=== PATIENT | female | born 1970 | race Caucasian/White ===

== ENCOUNTER → 2020-08-11 13:34 | Outpatient (BNVA) | payer OTHER, SELFPAY | PROVIDERS: PCP Internal Medicine; Visit Provider Physician Assistant ==

== ENCOUNTER 2020-09-07 15:09 | Outpatient (REF) | payer OTHER, SELFPAY ==
--- NOTE | ~2020-09-07 | XR_ITS ---
EXAMINATION: XR CHEST CLINICAL INFORMATION: Cough. COMPARISON: None TECHNIQUE: 2 views of the chest were obtained. FINDINGS: The lungs are well-expanded and clear. The heart size and pulmonary vascularity is normal. Mild spondylosis dorsal spine. XR/XR chest 2V IMPRESSION: Unremarkable chest exam.
[2020-09-07 16:20] LABS: MANUAL DIFF FLAG NO
[2020-09-07 16:27] LABS: Basophils Percent Auto 0.5 % (0-2); Eosinophils Absolute Auto 0.2 X10*3/uL (0.0-0.4); Eosinophils Percent Auto 2.4 % (0-4); Hematocrit 39.9 % (37-47); Hemoglobin 13.1 g/dl (12.0-16.0); Imm Gran Abs Auto 0.03 X10*3/uL (0.00-0.03); Imm Gran Pct Auto 0.3 % (0.0-0.4); Lymphocytes Absolute Auto 2.1 X10*3/uL (1.2-4.9); Mean Corpuscular HGB Conc 32.8 g/dl (31.0-35.0); Mean Corpuscular Hemoglobin 28.2 pg (27.0-33.0); Monocytes Absolute Auto 0.6 X10*3/uL (0.1-1.2); Monocytes Percent Auto 6.3 % (2-11); Neutrophils Absolute Auto 5.8 X10*3/uL (2.0-8.3); Neutrophils Percent Auto 66.5 % (45-73); Platelet Count 307 X10*3/uL (160-400); Red Blood Count 4.64 X10*6/uL (4.20-5.50); Red Cell Distribution Width 13.3 % (11.0-16.0); White Blood Count 8.8 X10*3/uL (4.8-10.8)
[2020-09-07 17:12] LABS: TSH reflex Free T4 2.33 uIU/mL (0.32-4.0)
== END 2020-09-07 15:10 | disposition home or self-care (01) ==
LOC: HO.LAB 15:09
PROVIDERS: PCP Internal Medicine; Visit Provider Internal Medicine Pulmonary Disease
DX: R05 Cough (principal); E03.9 Hypothyroidism, unspecified; K21.9 Gastro-esophageal reflux disease without esophagitis; J45.909 Unspecified asthma, uncomplicated; Z87.891 Personal history of nicotine dependence
CPT/HCPCS: 36415; 71046; 82785; 84443; 85025; 86003

== ENCOUNTER 2020-09-19 15:59 | Outpatient (REF) | payer OTHER, SELFPAY ==
--- NOTE | 2020-09-19 17:38 | PFT_ITS ---
Forced vital capacity, FEV1, QKV46-53, and MVV are all normal. Post bronchodilator therapy, there is no change. Total lung capacity and residual volume normal. Diffusion capacity normal. CONCLUSION: Normal pulmonary function test. No evidence of any restrictive or obstructive pulmonary disorder. Ced El MD MSB/MODL / [id number]
== END 2020-09-19 16:00 | disposition home or self-care (01) ==
LOC: HO.RESP 15:59
PROVIDERS: PCP Internal Medicine; Visit Provider Internal Medicine Pulmonary Disease
DX: R05 Cough (principal)
CPT/HCPCS: 94060; 94727; 94729

== ENCOUNTER → 2020-09-21 15:52 | Outpatient (BNVA) | payer OTHER, SELFPAY | PROVIDERS: PCP Internal Medicine; Visit Provider Internal Medicine Pulmonary Disease ==

== ENCOUNTER → 2020-09-26 07:30 | Outpatient (BNVA) | payer OTHER, SELFPAY | PROVIDERS: Visit Provider Physician Assistant ==

== ENCOUNTER 2020-10-25 10:00 | Day surgery (SDC) | payer OTHER, SELFPAY ==
[2020-10-20 13:19] VITALS: BMI 41.6
--- NOTE | 2020-10-24 09:51 | P.CONAN_ITS ---
HPI - Anesthesia Eval Consult details Narrative: 50yo F for Upper Endoscopy and Colonoscopy [facility] Active Problems Active Problems: All Active Problems (Updated 10/20/20 @ 13:22 by Lisy Alas) Otitis media (Acute) HTN (hypertension) (Acute) Encounter for screening colonoscopy (Acute) Morbid obesity (Acute) Dysphagia (Acute) Chronic cough (Acute) Reactive airway disease (Acute) Hiatal hernia (Acute) Mild asthma (Acute) Hypothyroidism (Acute) GERD (gastroesophageal reflux disease) (Acute) Past Medical History Medical History Chronic cough Dysphagia GERD (gastroesophageal reflux disease) Hiatal hernia Hx of sciatica Hypothyroidism Mild asthma Morbid obesity Reactive airway disease Family History Family History Father No problems noted. Mother Breast cancer Cancer of kidney Lung cancer Son Thyroid cancer Brother No problems noted. Sister No problems noted. Son No problems noted. Surgical History Surgical History (System 10/04/20 @ 13:35 by Cheri Hermosillo) History of total abdominal hysterectomy Social History Social History (System 10/04/20 @ 13:35 by Cheri Hermosillo) Household Members: Spouse Alcohol intake: current Alcohol intake frequency: holidays/special occasions only Alcohol type: beer and wine Smoking Status: Former smoker Tobacco Type: Cigarette Use of substances other than those prescribed or required for medical reasons: No Have you been hit, kicked, punched, or otherwise hurt by someone within the past year? 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 No evidence of any restrictive or obstructive pulmonary disorder. Assessment and Plan Assessment Anesthesia Assessment: Chart Reviewed
[2020-10-25 10:28] VITALS: BP 151/98; PULSE 110; RESP 18; TEMP 36.1; O2SAT 95
[2020-10-25] MEDS: Lactated Ringers 1,000 ML 100 ML IVCONT (10:33)
--- NOTE | 2020-10-25 11:05 | HO.ANESPROP2 ---
[facility] Active Problems Active Problems: All Active Problems (Updated 10/20/20 @ 13:22 by Lisy Alas) Otitis media (Acute) HTN (hypertension) (Acute) Encounter for screening colonoscopy (Acute) Morbid obesity (Acute) Dysphagia (Acute) Chronic cough (Acute) Reactive airway disease (Acute) Hiatal hernia (Acute) Mild asthma (Acute) Hypothyroidism (Acute) GERD (gastroesophageal reflux disease) (Acute) Past Medical History Medical History Chronic cough Dysphagia GERD (gastroesophageal reflux disease) Hiatal hernia Hx of sciatica Hypothyroidism Mild asthma Morbid obesity Reactive airway disease Family History Family History Father No problems noted. Mother Breast cancer Cancer of kidney Lung cancer Son Thyroid cancer Brother No problems noted. Sister No problems noted. Son No problems noted. Surgical History Surgical History (System 10/04/20 @ 13:35 by Cheri Hermosillo) History of total abdominal hysterectomy Social History Social History (System 10/04/20 @ 13:35 by Cheri Hermosillo) Household Members: Spouse Alcohol intake: current Alcohol intake frequency: holidays/special occasions only Alcohol type: beer and wine Smoking Status: Former smoker Tobacco Type: Cigarette Use of substances other than those prescribed or required for medical reasons: No Have you been hit, kicked, punched, or otherwise hurt by someone within the past year? 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 Meds Allergies Allergy/AdvReac Type Severity Reaction Status Date / Time No Known Allergies Allergy Verified 10/04/20 13:35 Active Medications: Current Medications Generic Name Dose Route Start Last Admin Trade Name Freq PRN Reason Stop Dose Admin Albuterol Sulfate 2.5 mg 10/25/20 10:18 Albuterol Sulfate (0.083%) 2.5 Mg/3 Ml Vial.Neb INHALE ONCE PRN Shortness of Breath/Wheezing Lactated Ringer's 1,000 mls @ 100 mls/hr 10/25/20 10:30 10/25/20 10:33 Lr IVCONT 100 mls/hr .Q10H SHARAN Administration Home Medications Medication Instructions Recorded Confirmed Last Taken Type albuterol sulfate 90 mcg/actuation 1 puff INHALATION Q4H PRN g 06/20/20 10/20/20 Unknown History aerosol inhaler Exam Exam Date and Time: October 25, 2020 1105 Height,Weight and Vital Signs: Height 5 ft 7 in Weight 120.656 kg Last Vital Signs Temp 96.9 F 10/25/20 10:28 Pulse 110 H 10/25/20 10:28 Resp 18 10/25/20 10:28 BP 151/98 H 10/25/20 10:28 Pulse Ox 95 10/25/20 10:28 Airway Mallampati Class: III TM Dist: >3cm Neck ROM: Full Heart: RRR Lungs: CTA
--- NOTE | 2020-10-25 11:49 | W.PM.OPN ---
Operative Note Operative Note Date of Service: 10/25/20 Narrative: Pre-op diagnosis: Colon cancer screening, GERD, dysphagia Post-op diagnosis: other (Esophagitis, esophageal stricture, hiatal hernia, gastritis, diverticulosis, hemorrhoids) Procedure: FLEXIBLE TRANSORAL UPPER GASTROINTESTINAL ENDOSCOPY WITH BIOPSIES AND COLONOSCOPY TILL CECUM UPPER ENDOSCOPY Consent: Indications for the procedure and potential complications of bleeding, perforation, reaction to medications and missed diagnosis were discussed with the patient and informed consent was obtained. Instrument: Olympus GIF H 190 mid size upper endoscope Monitoring: Vital signs and clinical assessment, continuous EKG monitoring, Pulse oximetry, Carbon Dioxide monitoring and blood pressure monitoring were done throughout the procedure. Procedure: The patient was placed in the left lateral decubitis position and pre-procedure medications were administered and a bite block was placed. The endoscope was inserted into the mouth and advanced under direct vision to the third part of duodenum. A careful inspection was made as the upper endoscope was withdrawn including a retroflexed examination of the proximal stomach; Findings and interventions are described below. Findings: Larynx: Normal Esophagus: GE junction at 35 cms, hiatal hernia 35 to 40 cms. Severe esophagitis with circumferential ulcers from 33 to 35 cms with focal stricture - biopsied. Balloon dilation was not performed due to esophageal inflammation. Stomach: Mild gastric erythema. Biopsies were obtained. Grade 4 flap valve on retroflexed examination of the cardia. Duodenum: Normal bulb and descending duodenum Intervention: Biopsies as noted above COLONOSCOPY PROCEDURE NOTE Consent: Indications for the procedure and potential complications of bleeding, perforation, reaction to medications and missed diagnosis were discussed with the patient and informed consent was obtained. Instrument: Olympus PCF H 190 L variable stiffness pediatric colonoscope Monitoring: Vital signs and clinical assessment, intermittent blood pressure monitoring, continuous EKG monitoring, Pulse oximetry and Carbon Dioxide monitoring were done throughout the procedure. Colon withdrawl time was 14 minutes. Procedure: The patient was placed in the left lateral decubitis position and pre-procedure medications were administered. After a digital rectal examination of the ano-rectum, the video colonoscope was inserted into the rectum and advanced through the colon to the cecum. The colonoscope was slowly withdrawn in a retrograde panoramic fashion and the colon mucosa was carefully examined including a retroflexed view of the rectum. Findings and interventions are described below. Procedure Difficulty: : Without difficulty Findings: Terminal Ileum: Not evaluated Cecum: Normal Ascending Colon: Normal Transverse Colon: Normal Descending Colon: Moderate diverticulosis Sigmoid Colon: Moderate diverticulosis Rectum: Normal Ano-rectum: Moderate internal hemorrhoids Colon preparation: Good after some irrigation. Impression and Post Procedure Diagnosis: Endoscopy Findings: ESOPHAGUS: GE junction at 35 cms, hiatal hernia 35 to 40 cms. Severe esophagitis with circumferential ulcers from 33 to 35 cms with focal stricture - biopsied. Balloon dilation was not performed due to esophageal inflammation. STOMACH: Gastritis Colonoscopy Findings: No polyps were detected. Moderate diverticulosis seen in the left colon Moderate hemorrhoids on retroflexed exam. Plan: Await pathology results Patient has an appointment on 11/16/20 in the GI Clinic with SUKI Alonzo. Repeat Colonoscopy in 10 years. Above findings were reviewed with the patient and GERD, Hiatal hernia and diverticulosis handouts were given in the discharge area Surgeon: Silas Bianchi MD Anesthesia: MAC (Chay Chester CRNA) Was an Hoop Machine Operator used for this Procedure?: Yes Hoop Machine Operator: Lux Swann Estimated blood loss (mL): 0 Pathology: other (A- GASTRIC ANTRUM BXS R/O H. PYLORI B- ESOPHAGEAL STRICTURE BXS) Condition: stable Disposition: PACU
--- NOTE | 2020-10-25 11:50 | MHC.SHP ---
Pre-Procedural Eval Section A The patient is an INPATIENT: No The History & Physical has been completed within 30 days and I have reviewed it.: Yes Section B Chief Complaint: Screening, Dysphagia Allergies: Allergies Allergy/AdvReac Type Severity Reaction Status Date / Time No Known Allergies Allergy Verified 10/04/20 13:35 Review of Systems Sugical H&P ROS: Negative: Constitution, Cardiovascular and Respiratory and Yes, Specify: Gastrointestinal (GERD, dysphagia) Exam Surgical H&P Exam: Normal: Heart, Normal: Lungs, Normal: Extremities and Normal: Abdomen Plan Diagnosis/Plan: Unchanged I have reviewed the history and physical and performed a pertinent physical examination on my patient. No changes have occurred unless specified.
--- NOTE | 2020-10-25 12:01 | W.PM.OPN ---
Operative Note Operative Note Date of Service: 10/25/20
[2020-10-25 12:50] VITALS: BP 127/85; PULSE 93; RESP 16; TEMP 36.2; O2SAT 96
== END 2020-10-25 13:36 | disposition home or self-care (01) ==
PROVIDERS: PCP Internal Medicine; Visit Provider Internal Medicine Gastroenterology
PROC: (CPT 45378; principal; 2020-10-25 11:00)
DX: Z12.11 Encounter for screening for malignant neoplasm of colon (principal); K57.30 Diverticulosis of large intestine without perforation or abscess without bleeding; K64.8 Other hemorrhoids; K21.9 Gastro-esophageal reflux disease without esophagitis; K22.2 Esophageal obstruction; K22.10 Ulcer of esophagus without bleeding; K29.50 Unspecified chronic gastritis without bleeding; K44.9 Diaphragmatic hernia without obstruction or gangrene; J45.909 Unspecified asthma, uncomplicated; Z79.899 Other long term (current) drug therapy; Z87.891 Personal history of nicotine dependence
CPT/HCPCS: 45378; 43239; 88305; 88312; 88342; J3010

== ENCOUNTER → 2020-11-16 11:13 | Outpatient (BNVA) | payer OTHER, SELFPAY | PROVIDERS: Visit Provider Physician Assistant ==

== ENCOUNTER 2022-03-05 14:03 | Outpatient (REF) | payer OTHER, SELFPAY ==
--- NOTE | ~2022-03-05 | US_ITS ---
EXAMINATION: US SOFT TISSUE OF THE NECK CLINICAL INFORMATION: Posterior neck mass on right side. COMPARISON: None TECHNIQUE: Linear transducer simons-scale and color Doppler examination of the right neck lump area indicated by patient. FINDINGS: There are small lymph nodes visualized in the right neck level 5A measuring 0.63 x 0.21 x 0.62 cm and 0.76 x 0.32 x 0.56 cm. There is normal carlo architecture with echogenic medulla. No additional lymph node seen. No abnormal vascularity. US/US soft tiss head and/or neck IMPRESSION: Benign-appearing right neck level 5A lymph nodes.
== END 2022-03-05 14:04 | disposition home or self-care (01) ==
LOC: HO.HMGCX 14:03
PROVIDERS: PCP Internal Medicine; Visit Provider Internal Medicine
DX: R22.1 Localized swelling, mass and lump, neck (principal)
CPT/HCPCS: 76536

== ENCOUNTER 2023-02-21 17:24 | Outpatient (AMB) | payer OTHER, SELFPAY ==
[2023-02-21 17:30] VITALS: BP 130/82; BMI 44.9
--- NOTE | 2023-02-21 17:30 | MHC.PC.OV ---
Vital Signs 02/21/23 17:30 Height 5 ft 7 in Weight 287 lb BMI 44.9 BP 130/82 Blood Pressure Location Lt brachial Position Sitting Intake Visit Reasons: physical Intake Note: Patient here for a physical exam Flight Service Agent Required: No Accompanied by: Self / Same As Patient Allergies terbinafine Allergy (Mild, Verified 02/21/23 17:38) pruritus Medication List - Last Reconciled 02/21/23 by Colleen Han MD levothyroxine 50 mcg PO DAILY 90 days omeprazole 20 mg PO BID 90 days Tobacco use date assessed: 09/13/22 Dental Screening Dental Screen Date: 02/21/23 Did you have a dental visit in the last 12 months?: Yes Did you have a dental problem in the last 6 months where you did not have access to dental care?: No Was dental information given to patient?: Patient has dentist HPI HPI Comments History of Present Illness Details This is a 52-year-old female that comes for her physical exam. She has morbid obesity and was advised to diet and exercise to reach BMI goal less than 30. Colonoscopy done 2020. Mammogram bone density will be order. No chest pain or shortness of breath. [facility] Medical History Recurrent otitis media Hx of sciatica Morbid obesity Dysphagia Chronic cough Reactive airway disease Hiatal hernia Mild asthma Hypothyroidism GERD (gastroesophageal reflux disease) Surgical History History of esophagogastroduodenoscopy (EGD) Hx of colonoscopy History of total abdominal hysterectomy Family History Father No problems noted. Mother Breast cancer Cancer of kidney Lung cancer Son Thyroid cancer Brother No problems noted. Sister No problems noted. Son No problems noted. 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 John Hathaway, Sugey Lockwood, Shyam Dee and colleagues, with an educational kylah from [employer]. Review of Systems Const All systems reviewed & are unremarkable except as noted in HPI and below Eyes Reports no additional complaints, Denies change in vision and Denies other visual disturbances Card Denies chest pain at rest, Denies chest pain with activity, Denies edema, Denies irregular heart rhythm, Denies claudication, Denies dyspnea, Denies dyspnea on exertion, Denies orthopnea, Denies paroxysmal nocturnal dyspnea and Denies slow heart rate Resp Denies cough, Denies dyspnea and Denies dyspnea on exertion GI Denies abdominal pain, Denies change in bowel habits, Denies excessive flatus, Denies nausea and Denies vomiting Denies urinary incontinence, Denies urinary hesitancy and Denies urinary urgency Musc Denies abnormal gait, Denies atrophy, Denies deformity and Denies limited range of motion Skin/Breast Denies bleeding lesions, Denies changing lesions and Denies rash Neuro Denies abnormal gait and Denies lack of coordination Physical exam (Primary Care) Vital Signs: Last Vital Signs BP 130/82 02/21/23 17:30 BMI result Body Mass Index 44.9 Tobacco/Smoking Status: Tobacco use Status Tobacco use date assessed 09/13/22 02/21/23 17:34 Patient Tobacco Use Status Former Tobacco user 02/21/23 17:34 Tobacco use type Cigarette 02/21/23 17:34 e-Cigarette/Vaping Use Never Used 02/21/23 17:34 Thrive Assessment: Date of Thrive Assessment Date Thrive assessed 09/13/22 02/21/23 17:34 Const Orientation/consciousness: patient oriented x3 HENMT Head: Yes normal to inspection, Yes normocephalic and Yes atraumatic Ears: external ears normal Eyes General: appearance normal, both eyes and all related structures Eyelids: Yes eyelids normal Conjunctivae: conjunctivae normal Neck Neck: Yes normal visual inspection and Yes supple Resp Effort & Inspection: normal respiratory effort Auscultation: clear to auscultation bilaterally Cardio Jugular venous distension: no JVD Rate: regular rate Rhythm: regular rhythm Heart sounds: S1 normal heart sound present and S2 normal heart sound present GI Inspection: Yes normal to inspection Palpation (GI): Soft to palpation and nontender Auscultation: normal bowel sounds Skin General skin exam: no rashes or lesions noted Neuro General: patient oriented x3 and no focal motor deficits Extrem General: Yes full ROM Psych Appearance: grossly normal Assessment and Plan Assessment & Plan (1) Physical exam: Code(s): Z00.00 - Encounter for general adult medical examination without abnormal findings Plan: Repeat in a year (2) Morbid obesity: Code(s): E66.01 - Morbid (severe) obesity due to excess calories Plan: Start diet and exercise to reach BMI goal less than 30. Orders: Orders Thyroid Stimulating Hormone 02/21/23 E03.9 - Hypothyroidism, unspecified Comprehensive Papillion. Panel Fast 02/21/23 E66.01 - Morbid (severe) obesity due to excess calories MM screening mammo BI 02/21/23 Z12.31 - Encounter for screening mammogram for malignant neoplasm of breast XR DEXA axial skeleton 02/21/23 N95.9 - Unspecified menopausal and perimenopausal disorder Lipid Panel 02/21/23 E78.5 - Hyperlipidemia, unspecified Coding Level of Care Code Est Pt Prev Care 40-64y(17560) Diagnoses Physical exam Z00.00 Morbid obesity E66.01 Time Spent (min) 33
== END 2023-02-21 17:47 | disposition home or self-care (01) ==
LOC: HO.HMGH 17:24
PROVIDERS: PCP Internal Medicine; Visit Provider Internal Medicine
DX: Z00.00 Encounter for general adult medical examination without abnormal findings (principal); E66.01 Morbid (severe) obesity due to excess calories; Z68.41 Body mass index [BMI] 40.0-44.9, adult
CPT/HCPCS: 99396

== ENCOUNTER 2023-07-18 17:50 | Emergency (ER) | payer OTHER, SELFPAY ==
--- NOTE | 2023-07-18 17:53 | ECG_ITS ---
Test Reason : high blood pressure Blood Pressure : / mmHG Vent. Rate : 083 BPM Atrial Rate : 083 BPM P-R Int : 180 ms QRS Dur : 082 ms QT Int : 364 ms P-R-T Axes : 032 065 007 degrees QTc Int : 427 ms Normal sinus rhythm Low voltage QRS Nonspecific ST abnormality Abnormal ECG No previous ECGs available Referred By: Tami Medina Electronically Signed By:AVINASH ARGUELLES MD
--- NOTE | 2023-07-18 17:58 | ED.GENADULT ---
HPI - General Adult General Chief complaint: General Medical Stated complaint: high bp, chest/ shoulder pain, pulse in ear Time Seen by Provider: 07/18/23 17:57 Source: patient and family (Spouse) Mode of arrival: ambulatory Limitations: no limitations History of Present Illness HPI narrative: A 53-year-old female walked into the emergency department for evaluation of left shoulder pain and right-sided chest pain intermittently for the past week, patient also been monitoring her blood pressure that is reading 170s/100's on her home machine, patient is known to have a borderline hypertension that was advised by her PCP to change her lifestyle patient is taking no medication for hypertension. Patient at home today was 170s over 110 was concern about the right-sided chest pain and left shoulder pain that the patient last had was 2 days ago, pain was described as nonexertional with no radiation no recent travel, no lower extremity swelling or tenderness. No fever, no chills, no SOB. Patient's boss at young age from heart attack which make the patient concern over her symptoms patient has no family history of are disease or blood clots disease, with no history of young in the family, patient currently is nonsmoker. Patient has an appointment with her doctor in 2 months Related Data Previous Rx's Medication Instructions Recorded levothyroxine 50 mcg tablet 50 mcg PO DAILY 90 days #90 tabs 05/18/23 omeprazole 20 mg capsule,delayed 20 mg PO BID 90 days #180 caps 06/04/23 release Allergies Allergy/AdvReac Type Severity Reaction Status Date / Time terbinafine Allergy Mild pruritus Verified 04/08/23 16:14 Review of Systems Review of Systems: All other systems are reviewed and are negative Constitutional: Reports as per HPI and Reports no additional constitutional complaints Eyes: Reports as per HPI and Reports no additional eye complaints Reports system reviewed and no additional complaints, except as documented Cardiovascular: Reports as per HPI and Reports no additional cardiovascular complaints Respiratory: Reports as per HPI and Reports no additional respiratory complaints Gastrointestinal: Reports as per HPI and Reports no additional gastrointestinal complaints Genitourinary: Reports no additional female genitourinary complaints Musculoskeletal: Reports no additional musculoskeletal complaints Skin/Breast: Reports system reviewed and no additional complaints, except as docu Psychiatric: Reports no additional psychiatric complaints Endocrine: Reports no additional endocrine complaints Hematologic/Lymphatic: Reports no additional hematologic/lymphatic complaints Allergic/Immunologic: Reports no additional allergic/immunologic complaints Reports system reviewed and no additional complaints, except as documented and Reports Abnormal speech present [facility] Past Medical History Medical History Recurrent otitis media Hx of sciatica Morbid obesity Dysphagia Chronic cough Reactive airway disease Hiatal hernia Mild asthma Hypothyroidism GERD (gastroesophageal reflux disease) Surgical History History of esophagogastroduodenoscopy (EGD) Hx of colonoscopy History of total abdominal hysterectomy Family History Family History Father No problems noted. Mother Breast cancer Cancer of kidney Lung cancer Son Thyroid cancer Brother No problems noted. Sister No problems noted. Son No problems noted. 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 Current occupational exposures/hazards: No Cognitive needs: No Hearing needs: No Vision needs: Yes Physical Exam ED Vital Signs: Vital Signs - 24 hr 07/18/23 18:10 07/18/23 22:26 07/18/23 22:28 Temperature 98.5 F Pulse Rate 96 75 73 Respiratory Rate 16 Blood Pressure 164/114 H 152/92 H 155/90 H Pulse Oximetry 95 96 96 Oxygen Delivery Method Room Air Room Air Room Air 07/18/23 23:00 07/18/23 23:02 07/18/23 23:44 Temperature 97.8 F Pulse Rate 63 Respiratory Rate 16 Blood Pressure 141/97 H 137/96 H 155/73 H Pulse Oximetry 95 Oxygen Delivery Method Room Air BMI result Body Mass Index 43.2 Vital signs have been reviewed and appear to be correct. Blood pressure elevated. Heart rate normal. Respiratory rate normal. Temperature normal. Oxygen saturation normal. Appearance: Anxious, obese, Alert. No acute distress. Head: Normal external exam. Normocephalic. Atraumatic. No Manuel signs noted. No raccoon eyes noted Eyes: PERRLA. EOMI. Conjunctiva and sclera normal. Eyelids normal. ENT: TM's Normal. Pharynx normal. Uvula midline. Moist mucous membranes. No trismus noted. No drooling noted. No muffled voice noted. Neck: Normal inspection. Neck supple. FROM. No adenopathy. Thyroid Normal. No meningeal signs. No neck mass noted. CVS: Normal heart rate and rhythm. Heart sound normal. No murmurs noted. Pulses normal throughout. Respiratory: No respiratory distress. Painless inspiration. Breath sounds normal. No wheezes/rales/rhonchi noted. Chest nontender. No accessory muscle usage noted or decreased air movement noted. Abdomen: Soft and nontender. Bowel sounds normal in all 4 quadrants. No distention noted. No organomegaly noted. No visible injury noted. Back: No CVA tenderness. Full range of motion noted. Skin: Skin warm and dry. Normal skin color. Normal skin turgor. No rashes/lesions/lacerations noted. Extremities: No lower extremity edema. Extremities exhibit normal range of motion. Extremities nontender. Neuro: Oriented X 3. Cranial nerve exam: II-XII are grossly intact No motor deficit. No sensory deficit. Reflexes normal. Course Course Course Narrative: RME- 53-year-old female presents for evaluation of on and off shoulder/chest pain and elevated blood pressure readings at home. The patient is not on blood pressure medication this time, she states in the past she has had ?borderline hypertension but have not been prescribed anything. ? Her next appointment with her PCP is not until September. Plan for EKG, labs Reevaluation(s) Reevaluation #1: Patient had serial blood pressure reading in the emergency department with improvement of her blood pressure while she is in the emergency department, patient declined any headache, no chest pain, no SOB. Had left shoulder pain/right-sided chest pain with no evidence of PE/ACS. Patient was instructed to keep monitoring her blood pressure and follow-up with her primary doctor, patient also was advised to modify her lifestyle. Time: 00:32 Medical Decision Making Differential Diagnosis Differential Diagnoses: The differential diagnosis associated with the presentation includes (ACS, pulmonary embolism, hypertensive emergency, electrolyte abnormality, severe anemia.) Admission/Observation Consideration of admission/observation: Escalation of care including admission/observation considered Lab Data MDM Lab Attestation statement: I reviewed the patient's lab results. 07/18/23 18:34 07/18/23 18:34 Labs: Lab Results 07/18/23 07/18/23 Range/Units 18:34 23:43 WBC 8.3 (4.8-10.8) X10*3/uL RBC 5.00 (4.20-5.50) X10*6/uL Hgb 14.2 (12.0-16.0) g/dl Hct 42.1 (37.0-47.0) % MCV 84.2 (80.0-98.0) fL MCH 28.4 (27.0-33.0) pg MCHC 33.7 (31.0-35.0) g/dl RDW 13.2 (11.0-16.0) % Plt Count 299 (160-400) X10*3/uL MPV 9.9 (9.4-12.3) fL Immature Gran % (Auto) 0.4 (0.0-0.4) % Neut % (Auto) 65.1 (45-73) % Lymph % (Auto) 25.9 (20-40) % Tate % (Auto) 5.5 (2-11) % Eos % (Auto) 2.5 (0-4) % Baso % (Auto) 0.6 (0-2) % Lymph # (Auto) 2.2 (1.2-4.9) X10*3/uL Tate # (Auto) 0.5 (0.1-1.2) X10*3/uL Eos # (Auto) 0.2 (0.0-0.4) X10*3/uL Baso # (Auto) 0.1 (0.0-0.2) X10*3/uL Abs Immat Gran (auto) 0.03 (0.00-0.03) X10*3/uL Absolute Neuts (auto) 5.4 (2.0-8.3) x10*3/uL Absolute Nucleated RBC 0.000 (0.0-0.012) X10*3/uL Nucleated RBC % (auto) 0.0 (0.0-0.2) /100WBC PT 12.4 (11.1-13.3) SEC INR 1.0 (0.9-1.1) APTT 34.0 (26.0-36.8) SEC D-Dimer High Sensitivty < 150 NG/ML Sodium 138 (135-145) mmol/L Potassium 3.4 (3.3-5.1) mmol/L Chloride 108 (96-108) mmol/L Carbon Dioxide 21 L (22-29) mmol/L Anion Gap 12 (12-20) BUN 12 (9-16) mg/dL Creatinine 0.80 (0.5-1.4) mg/dL Estim Creat Clear Calc 110.4 Estimated GFR > 60 Random Glucose 114 (60-115) mg/dL Calcium 9.6 (8.4-10.2) mg/dL Total Bilirubin 0.6 (0.0-1.0) mg/dL AST 17 (5-31) U/L ALT 22 (0-31) U/L Alkaline Phosphatase 98 (39-117) U/L Troponin I High Sens < 2.7 < 2.7 (<3.5-17.0) ng/L Total Protein 7.9 (6.5-8.0) g/dL Albumin 4.3 (3.5-5.0) g/dL Lipase 25 (8-78) U/L Independent Interpretation I performed an independent interpretation of an: EKG (Normal sinus rhythm at 83 beats per minutes, normal intervals, no ST-T changes, nonspecific ST-T changes, no old EKG to compare.) Discharge Plan Discharge Clinical Impression: HTN (hypertension) Patient Disposition: Home, Self-Care Instructions: Hypertension (ED) Prescriptions: No Action levothyroxine 50 mcg tablet 50 mcg PO DAILY 90 Days Qty: 90 0RF omeprazole 20 mg capsule,delayed release(DR/EC) 20 mg PO BID 90 Days Qty: 180 3RF Referrals: Colleen Silver MD [Primary Care Provider] -
[2023-07-18 18:10] VITALS: BP 164/114; PULSE 96; RESP 16; TEMP 36.9; O2SAT 95; BMI 43.2
[2023-07-18 18:39] LABS: MANUAL DIFF FLAG NO
[2023-07-18 18:42] LABS: Basophils Absolute Auto 0.1 X10*3/uL (0.0-0.2); Basophils Percent Auto 0.6 % (0-2); Eosinophils Absolute Auto 0.2 X10*3/uL (0.0-0.4); Eosinophils Percent Auto 2.5 % (0-4); Hematocrit 42.1 % (37.0-47.0); Hemoglobin 14.2 g/dl (12.0-16.0); Imm Gran Abs Auto 0.03 X10*3/uL (0.00-0.03); Imm Gran Pct Auto 0.4 % (0.0-0.4); Lymphocytes Absolute Auto 2.2 X10*3/uL (1.2-4.9); Lymphocytes Percent Auto 25.9 % (20-40); Mean Corpuscular HGB Conc 33.7 g/dl (31.0-35.0); Mean Corpuscular Hemoglobin 28.4 pg (27.0-33.0); Mean Corpuscular Volume 84.2 fL (80.0-98.0); Mean Platelet Volume 9.9 fL (9.4-12.3); Monocytes Absolute Auto 0.5 X10*3/uL (0.1-1.2); Monocytes Percent Auto 5.5 % (2-11); Neutrophils Absolute Auto 5.4 x10*3/uL (2.0-8.3); Neutrophils Percent Auto 65.1 % (45-73); Platelet Count 299 X10*3/uL (160-400); Red Cell Distribution Width 13.2 % (11.0-16.0); White Blood Count 8.3 X10*3/uL (4.8-10.8)
[2023-07-18 18:47] LABS: Prothrombin Time 12.4 SEC (11.1-13.3)
[2023-07-18 18:59] LABS: Alanine Aminotransferase 22 U/L (0-31); Albumin Level 4.3 g/dL (3.5-5.0); Alkaline Phosphatase 98 U/L (39-117); Anion Gap 12 (12-20); Aspartate Amino Transferase 17 U/L (5-31); Bilirubin Total 0.6 mg/dL (0.0-1.0); Blood Urea Nitrogen 12 mg/dL (9-16); Calcium 9.6 mg/dL (8.4-10.2); Carbon Dioxide 21 mmol/L (22-29); Chloride 108 mmol/L (96-108); Creatinine Clr Calc Pharmacy 110.4; Estimated Glomerular Filt Rate > 60; Glucose Random 114 mg/dL (60-115); Lipase 25 U/L (8-78); Potassium 3.4 mmol/L (3.3-5.1); Sodium 138 mmol/L (135-145); Total Protein 7.9 g/dL (6.5-8.0)
[2023-07-18 19:10] LABS: Troponin-I High Sensitivity < 2.7 ng/L (<3.5-17.0)
[2023-07-18 22:26] VITALS: BP 152/92; PULSE 75; O2SAT 96
[2023-07-18 22:28] VITALS: BP 155/90; PULSE 73; O2SAT 96
[2023-07-18 23:00] VITALS: BP 141/97
[2023-07-18 23:02] VITALS: BP 137/96
[2023-07-18 23:44] VITALS: BP 155/73; PULSE 63; RESP 16; TEMP 36.6; O2SAT 95
[2023-07-19 00:08] LABS: D Dimer High Sensitivity < 150 NG/ML
[2023-07-19 00:23] LABS: Troponin-I High Sensitivity < 2.7 ng/L (<3.5-17.0)
== END 2023-07-19 01:15 | disposition home or self-care (01) ==
PROVIDERS: Physician Assistant; Emergency Provider Emergency Medicine; PCP Internal Medicine
DX: I10 Essential (primary) hypertension (principal); R07.9 Chest pain, unspecified; M25.512 Pain in left shoulder; K21.9 Gastro-esophageal reflux disease without esophagitis; E03.9 Hypothyroidism, unspecified; E66.9 Obesity, unspecified; Z68.41 Body mass index [BMI] 40.0-44.9, adult; Z87.891 Personal history of nicotine dependence; Z79.899 Other long term (current) drug therapy
CPT/HCPCS: 36415; 80053; 83690; 84484; 85025; 85379; 85610; 85730; 93005; 99283; 99284

== ENCOUNTER → 2023-07-18 17:53 | Outpatient (BNV) | payer OTHER, SELFPAY | PROVIDERS: Emergency Provider Emergency Medicine; PCP Internal Medicine; Visit Provider Internal Medicine Cardiovascular Disease | DX: R94.31 Abnormal electrocardiogram [ECG] [EKG] (principal) | CPT/HCPCS: 93010 ==

== ENCOUNTER 2023-08-05 12:54 | Outpatient (AMB) | payer OTHER, SELFPAY ==
--- NOTE | 2023-08-05 12:59 | MHC.PC.OV ---
Vital Signs 08/05/23 13:01 Height 5 ft 7 in Weight 290 lb BMI 45.4 BP 146/100 H Blood Pressure Location Lt brachial Position Sitting Intake Visit Reasons: ed follow up eleveated BP Intake Note: Patient here for [facility] ED follow up Elevated BP [place] Lifeguard Required: No Accompanied by: Self / Same As Patient Allergies No Known Allergies Allergy (Verified 08/05/23 13:26) Medication List - Last Reconciled 08/05/23 by Colleen Han MD clobetasol 0.05% topical BEDTIME levothyroxine 50 mcg PO DAILY 90 days losartan 25 mg PO DAILY 30 days omeprazole 20 mg PO BID 90 days terbinafine HCl 250 mg PO DAILY Tobacco use date assessed: 08/05/23 Dental Screening Dental Screen Date: 08/05/23 Did you have a dental visit in the last 12 months?: Yes Did you have a dental problem in the last 6 months where you did not have access to dental care?: No Was dental information given to patient?: Patient has dentist HPI HPI Comments History of Present Illness Details This is a 53-year-old female with hypertension, hypothyroidism, morbid obesity and GERD that comes today for follow-up on her elevated blood pressure. She went to emergency room at the beginning of the month and was prescribed losartan which she has not taken yet. Blood pressure ranges from 130/80 to 150/100. Blood pressure will be recheck in 3 weeks by nurse navigator. Was advised to do low-salt diet. Last TSH was normal. GERD stable with PPIs. She is morbidly obese with a BMI of 45.4 and was advised to diet and exercise to reach BMI goal less than 30. Patient declines weight loss surgery. She also complains of right wrist pain that has been present for 2-3 weeks. Has been using a wrist brace that has improved. Would like to see ortho.. [facility] Medical History (Updated 08/05/23 @ 14:09 by Colleen Han MD) Recurrent otitis media Hx of sciatica Morbid obesity Dysphagia Chronic cough Reactive airway disease Hiatal hernia Mild asthma Hypothyroidism GERD (gastroesophageal reflux disease) Surgical History History of esophagogastroduodenoscopy (EGD) Hx of colonoscopy History of total abdominal hysterectomy Family History Father No problems noted. Mother Breast cancer Cancer of kidney Lung cancer Son Thyroid cancer Brother No problems noted. Sister No problems noted. Son No problems noted. 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 1. Little interest or pleasure in doing things: not at all 2. Feeling down, depressed, or hopeless: not at all 3. Trouble falling or staying asleep, or sleeping too much: not at all 4. Feeling tired or having little energy: not at all 5. Poor appetite or overeating: not at all 6. Feeling bad about yourself - or that you are a failure or have let yourself or your family down: not at all 7. Trouble concentrating on things, such as reading the newspaper or watching television: not at all 8. Moving or speaking so slowly that other people could have noticed. Or the opposite - being so fidgety or restless that you have been moving around a lot more than usual: not at all 9. Thoughts that you would be better off or of hurting yourself in some way: not at all Total score: 0 Depression Screening Interpretation: Negative Depression Screening Done: Yes 25871 - PHQ-9 Billing: Yes Source: Developed by Drs. John Hathaway, Sugey Lockwood, Shyam Dee and colleagues, with an educational kylah from [employer]. Thrive Questionnaire Date Thrive assessed: 08/05/23 I am a: Patient What is your living situation today?: I have a steady place to live Within the past 12 months, did the food you bought not last and you didn't have the money to get more?: Never true Within the past 12 months, did you worry whether your food would run out before you got money to buy more?: Never true Do you have trouble paying for medicines?: No Do you have trouble getting transportation to medical appointments?: No Do you have trouble paying your heating and electricity bill?: No Do you have trouble taking care of your child, family member or friend?: No Do you have trouble with day-to-day activities such as bathing, preparing meals, shopping, managing finances, etc.?: No Are you currently unemployed and looking for a job?: No Are you interested in more education?: No Please select the resources that you would like help with: None Currently or been in a relationship where the following occur: no concerns reported THRIVE Score: 0 AUDIT C Alcohol Use Questionnaire (AUDIT-C) 1. How often do you have a drink containing alcohol?: Monthly or less 2. How many drinks containing alcohol do you have on a typical day when you are drinking?: 1 or 2 3. How often do you have six or more drinks on one occasion?: Never Total Score: 1 ANSHU-7 AMB Questionnaire ANSHU-7 Date ANSHU - 7 assessed: 08/05/23 Feeling nervous, anxious, or on edge: 1 = Several days Not being able to stop or control worryin = Not at all Worrying too much about different things: 0 = Not at all Trouble relaxin = Not at all Being so restless that it is hard to sit still: 0 = Not at all Becoming easily annoyed or irritable: 0 = Not at all Feeling afraid as if something awful might happen: 0 = Not at all Total ANSHU-7 score (0-4 normal; 5-9 mild; 10-14 moderate; 15-21 severe): 1 Source: Developed by Drs. John Hathaway, Sugey Lockwood, Shyam Dee and colleagues, with an educational kylah from [employer]. ANSHU-7 Assessment Billing ANSHU-7 Assessment Tool: ANSHU-7 Assessment 23944 Review of Systems Const All systems reviewed & are unremarkable except as noted in HPI and below Eyes Reports no additional complaints, Denies change in vision and Denies other visual disturbances Card Denies chest pain at rest, Denies chest pain with activity, Denies edema, Denies irregular heart rhythm, Denies claudication, Denies dyspnea, Denies dyspnea on exertion, Denies orthopnea, Denies paroxysmal nocturnal dyspnea and Denies slow heart rate Resp Denies cough, Denies dyspnea and Denies dyspnea on exertion GI Denies abdominal pain, Denies change in bowel habits, Denies excessive flatus, Denies nausea and Denies vomiting Denies urinary incontinence, Denies urinary hesitancy and Denies urinary urgency Musc Denies abnormal gait, Denies atrophy, Denies deformity and Denies limited range of motion Skin/Breast Denies bleeding lesions, Denies changing lesions and Denies rash Neuro Denies abnormal gait, Denies behavioral changes and Denies lack of coordination Psych Denies behavioral changes Physical exam (Primary Care) Vital Signs: Last Vital Signs BP 146/100 H 08/05/23 13:01 BMI result Body Mass Index 45.4 Tobacco/Smoking Status: Tobacco use Status Tobacco use date assessed 08/05/23 08/05/23 13:13 Patient Tobacco Use Status Former Tobacco user 08/05/23 13:00 Tobacco use type Cigarette 08/05/23 13:00 e-Cigarette/Vaping Use Never Used 08/05/23 13:00 PHQ-9: PHQ-9 Score PHQ-9: Total score 0 08/05/23 13:38 Depression Screening Interpretation: Negative Thrive Assessment: Date of Thrive Assessment Date Thrive assessed 08/05/23 08/05/23 13:13 Currently or been in a relationship where the following occur: no concerns reported Eyes General: appearance normal, both eyes and all related structures Eyelids: Yes eyelids normal Conjunctivae: conjunctivae normal Neck Neck: Yes normal visual inspection and Yes supple Resp Effort & Inspection: normal respiratory effort Auscultation: clear to auscultation bilaterally Cardio Jugular venous distension: no JVD Rate: regular rate Rhythm: regular rhythm Heart sounds: S1 normal heart sound present and S2 normal heart sound present Extrem General: Yes full ROM Assessment and Plan Assessment & Plan (1) HTN (hypertension): Code(s): I10 - Essential (primary) hypertension Qualifiers: Hypertension type: primary hypertension Qualified Code(s): I10 - Essential (primary) hypertension Plan: Monitor blood pressure at home. Blood pressure will be recheck in 3 weeks by nurse navigator. Blood pressure goal is equal or less than 130/80. (2) GERD (gastroesophageal reflux disease): Code(s): K21.9 - Gastro-esophageal reflux disease without esophagitis Qualifiers: Esophagitis presence: esophagitis presence not specified Qualified Code(s): K21.9 - Gastro-esophageal reflux disease without esophagitis Plan: Continue PPIs. (3) Hypothyroidism: Code(s): E03.9 - Hypothyroidism, unspecified Qualifiers: Hypothyroidism type: unspecified Qualified Code(s): E03.9 - Hypothyroidism, unspecified Plan: Continue levothyroxine. Monitor TSH. (4) Morbid obesity: Code(s): E66.01 - Morbid (severe) obesity due to excess calories Plan: Start diet and exercise. BMI goal is less than 30. Orders: Orders XR wrist RT 2V Today Referrals Orthopedics Referral M25.531 - Pain in right wrist Coding Level of Care Code Est Pt Level 4 (86575) Diagnoses Primary hypertension I10 Hypertension type: primary hypertension Gastroesophageal reflux disease, unspecified whether esophagitis present K21.9 Esophagitis presence: esophagitis presence not specified Hypothyroidism, unspecified type E03.9 Hypothyroidism type: unspecified Morbid obesity E66.01 Additional Codes ANSHU-7 Assessment Billing - ANSHU-7 Assessment Tool: ANSHU-7 Assessment 31968 ([id number]) Time Spent (min) 25
[2023-08-05 13:01] VITALS: BP 146/100; BMI 45.4
== END 2023-08-05 13:37 | disposition home or self-care (01) ==
LOC: HO.HMGH 12:54
PROVIDERS: PCP Internal Medicine; Visit Provider Internal Medicine
DX: I10 Essential (primary) hypertension (principal); K21.9 Gastro-esophageal reflux disease without esophagitis; E66.01 Morbid (severe) obesity due to excess calories; Z68.42 Body mass index [BMI] 45.0-49.9, adult; E03.9 Hypothyroidism, unspecified
CPT/HCPCS: 99214

== ENCOUNTER 2023-08-07 09:30 | Outpatient (REF) | payer OTHER, SELFPAY ==
--- NOTE | ~2023-08-07 | XR_ITS ---
EXAMINATION: XR WRIST, RIGHT CLINICAL INFORMATION: Pain. COMPARISON: None available. TECHNIQUE: PA, lateral, oblique, and scaphoid views of the right wrist. FINDINGS: The first metacarpal bone shows a slight moth-eaten pattern and mild periosteal thickening. The proximal and distal carpal rows are intact. No fracture or dislocation is seen. There is generalized soft tissue swelling of the wrist. No focal soft tissue gas or foreign body is seen. XR/XR wrist RT 2V IMPRESSION: 1. The right first metacarpal bone shows a subtle moth-eaten, permeative pattern and mild periosteal thickening. This appearance can be associated with infectious etiologies and neoplasms including multiple myeloma. Recommend clinical correlation. This could be further evaluated with MRI or a skeletal survey, if clinically indicated. 2. No fracture or dislocation is seen. 3. There is generalized soft tissue swelling of the right wrist.
== END 2023-08-07 09:31 | disposition home or self-care (01) ==
LOC: HO.XRAY 09:30
PROVIDERS: PCP Internal Medicine; Visit Provider Internal Medicine
DX: M25.531 Pain in right wrist (principal)
CPT/HCPCS: 73100

== ENCOUNTER 2023-08-27 11:11 | Outpatient (REF) | payer OTHER, SELFPAY ==
--- NOTE | ~2023-08-27 | MR_ITS ---
EXAMINATION: MR HAND WITHOUT AND WITH CONTRAST, RIGHT CLINICAL INFORMATION: Possible bone lesion on wrist radiographs. Pain. COMPARISON: Right wrist radiographs dated 08/07/2023. TECHNIQUE: Multisequence MR imaging of the right hand was obtained before and after the IV administration of 10 mL Gadavist contrast on a high-field strength scanner. FINDINGS: BONE: No concerning lytic or blastic osseous lesion. The subtle moth-eaten appearance of the first metacarpal on the prior radiographs appears to have been artifactual. No marrow edema. No postcontrast marrow enhancement. No acute fracture or dislocation. Normal carpal alignment. MUSCLES/TENDONS: The visualized flexor and extensor tendons are intact. No transverse tendon tear or tendon retraction. LIGAMENTS: Intact collateral ligaments. SOFT TISSUES: No soft tissue mass or fluid collection. No enhancing soft tissue lesion. No significant joint effusion. MR/MR hand RT wo/w con IMPRESSION: 1. No concerning lytic or blastic osseous lesion. The subtle moth-eaten appearance of the first metacarpal on the prior radiographs appears to have been artifactual. 2. Otherwise unremarkable examination.
[2023-08-27] MEDS: gadobutroL 10 ML VIAL IVPUSH (12:14)
== END 2023-08-27 11:12 | disposition home or self-care (01) ==
LOC: HO.MRI 11:11
PROVIDERS: PCP Internal Medicine; Visit Provider Internal Medicine
DX: R93.89 Abnormal findings on diagnostic imaging of other specified body structures (principal)
CPT/HCPCS: 73220; A9585

== ENCOUNTER 2023-08-29 14:52 | Outpatient (AMB) | payer OTHER, SELFPAY ==
--- NOTE | 2023-08-29 15:00 | A.OFFVIS_ITS ---
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 Patient reports having a fall causing a contusion to her right arm ulnar aspect of forearm. She had xrays and was seen by her PCP who ordered an MRI and referred to orthopedics. Currently she has had improvement in pain however she continues to have discomfort with twisting motions of wrist. Finds use of a wrist brace at night has helped. Denies any numbness or tingling. 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 She reports she sustained a fall and injured her right arm. She was seen by her PCP who ordered an MRI and referred her to our office. She currently states she has no pain however she continues to have discomfort with twisting motion of her wrist. She denies any numbness or tingling. She has been using a brace at night with benefits. [facility] Medical History Recurrent otitis media Hx of sciatica Morbid obesity Dysphagia Chronic cough Reactive airway disease Hiatal hernia Mild asthma Hypothyroidism GERD (gastroesophageal reflux disease) Surgical History History of esophagogastroduodenoscopy (EGD) Hx of colonoscopy History of total abdominal hysterectomy Family History Father No problems noted. Mother Breast cancer Cancer of kidney Lung cancer Son Thyroid cancer Brother No problems noted. Sister No problems noted. Son No problems noted. 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 Current occupational exposures/hazards: No Cognitive needs: No Hearing needs: No Vision needs: Yes Review of Systems Const All systems reviewed & are unremarkable except as noted in HPI and below Physical Exam Vital Signs: BMI result Body Mass Index 45.4 Const General: cooperative, healthy appearing, comfortable, no acute distress, well developed and alert Orientation/consciousness: patient oriented x3 HEENT Head: Yes normal to inspection, Yes normocephalic and Yes atraumatic Eyes General: appearance normal, both eyes and all related structures Resp Effort & Inspection: normal respiratory effort and able to speak in complete sentences Cardio Rate: regular rate Peripheral pulses: Peripheral pulses 2+ throughout GI Palpation (GI): Soft to palpation Skin Lesions: no lesions Rashes: no rashes Neuro General: patient oriented x3 Extrem Other: Right wrist: Normal to inspection. No reproducible pain on exam. No laxity, no crepitus. NVI. Assessment & Plan Assessment & Plan (1) Right wrist pain: Code(s): M25.531 - Pain in right wrist Plan We discussed options which include occupational therapy, use of a wrist brace and modification of activities. She will hold off on formal physical therapy at this time but she will use a brace at night which she used in the past and had relief. She will avoid lifting weight anything more than 30 pounds as it has caused her pain in the past. If symptoms persist or worsens, patient will contact the office, otherwise follow-up as needed. Patient Instructions: Scribed for Tessa Stiles PA-C, by Marvin Wyatt medical chemist, on 08/29/2023 at 3:00 PM EST. ITessa PA-C, have personally reviewed and agree with the information entered by the scribe. Quality Reporting (2019) Adult ([facility] 138/2/69) Smoking risk assessment performed?: Yes Patient Tobacco Use Status: Former Tobacco user Coding Level of Care Code New Pt Level 3 (50578) Diagnoses Right wrist pain M25.531
[2023-08-29 15:12] VITALS: BMI 45.4
== END 2023-08-29 15:43 | disposition home or self-care (01) ==
PROVIDERS: PCP Internal Medicine; Visit Provider Physician Assistant
DX: M25.531 Pain in right wrist (principal)
CPT/HCPCS: 99203

== ENCOUNTER → 2023-08-29 14:52 | Outpatient (BNVA) | payer OTHER, SELFPAY | PROVIDERS: PCP Internal Medicine; Visit Provider Physician Assistant ==

== ENCOUNTER 2024-02-26 17:15 | Outpatient (AMB) | payer BC, SELFPAY ==
--- NOTE | 2024-02-26 17:17 | A.OFFPC_ITS ---
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: No Accompanied by: Self / Same As Patient Allergies No Known Allergies Allergy (Verified 02/26/24 17:29) Medication List - Last Reconciled 02/26/24 by Colleen Han MD clobetasol 0.05% topical BEDTIME levothyroxine 50 mcg PO DAILY 90 days omeprazole 20 mg PO BID 90 days Tobacco use date assessed: 08/05/23 Dental Screening Dental Screen Date: 02/26/24 Did you have a dental visit in the last 12 months?: Yes Did you have a dental problem in the last 6 months where you did not have access to dental care?: No Was dental information given to patient?: Patient has dentist HPI HPI Comments History of Present Illness Details This is a 53-year-old female with morbid obesity that comes for her physical exam. She is morbidly obese and has been trying to do diet and ex ercise. Mammogram done 2023. Colonoscopy done 2020 and was normal. No need for Pap smear due to hysterectomy for benign reasons. Labs were done at [facility] and I faxed a request for [facility] labs to fax them over to me. No fever or night sweats. [facility] Medical History (Updated 02/26/24 @ 17:45 by Colleen Han MD) Recurrent otitis media Hx of sciatica Morbid obesity Dysphagia Chronic cough Reactive airway disease Hiatal hernia Mild asthma Hypothyroidism GERD (gastroesophageal reflux disease) Surgical History History of esophagogastroduodenoscopy (EGD) Hx of colonoscopy History of total abdominal hysterectomy Family History Father No problems noted. Mother Breast cancer Cancer of kidney Lung cancer Son Thyroid cancer Brother No problems noted. Sister No problems noted. Son No problems noted. 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 1. Little interest or pleasure in doing things: not at all 2. Feeling down, depressed, or hopeless: not at all 3. Trouble falling or staying asleep, or sleeping too much: not at all 4. Feeling tired or having little energy: not at all 5. Poor appetite or overeating: not at all 6. Feeling bad about yourself - or that you are a failure or have let yourself or your family down: not at all 7. Trouble concentrating on things, such as reading the newspaper or watching television: not at all 8. Moving or speaking so slowly that other people could have noticed. Or the opposite - being so fidgety or restless that you have been moving around a lot more than usual: not at all 9. Thoughts that you would be better off or of hurting yourself in some way: not at all Total score: 0 Depression Screening Interpretation: Negative Depression Screening Done: Yes 13727 - PHQ-9 Billing: Yes Source: Developed by Drs. John Hathaway, Sugey Lockwood, Shyam Dee and colleagues, with an educational kylah from [employer]. Thrive Questionnaire Date Thrive assessed: 02/26/24 I am a: Patient What is your living situation today?: I have a steady place to live Within the past 12 months, did the food you bought not last and you didn't have the money to get more?: I choose not to answer this question Within the past 12 months, did you worry whether your food would run out before you got money to buy more?: I choose not to answer this question Do you have trouble paying for medicines?: I choose not to answer this question Do you have trouble getting transportation to medical appointments?: I choose not to answer this question Do you have trouble paying your heating and electricity bill?: I choose not to answer this question Do you have trouble taking care of your child, family member or friend?: I choose not to answer this question Do you have trouble with day-to-day activities such as bathing, preparing meals, shopping, managing finances, etc.?: I choose not to answer this question Are you currently unemployed and looking for a job?: I choose not to answer this question Are you interested in more education?: I choose not to answer this question Please select the resources that you would like help with: None Currently or been in a relationship where the following occur: I choose not to answer THRIVE Score: 0 AUDIT C Alcohol Use Questionnaire (AUDIT-C) 1. How often do you have a drink containing alcohol?: 2-4 times a month 2. How many drinks containing alcohol do you have on a typical day when you are drinking?: 1 or 2 3. How often do you have six or more drinks on one occasion?: Never Total Score: 2 Score Reviewed/Action Taken: No ANSHU-7 AMB Questionnaire ANSHU-7 Date ANSHU - 7 assessed: 02/26/24 Feeling nervous, anxious, or on edge: 0 = Not at all Not being able to stop or control worryin = Not at all Worrying too much about different things: 0 = Not at all Trouble relaxin = Not at all Being so restless that it is hard to sit still: 0 = Not at all Becoming easily annoyed or irritable: 0 = Not at all Feeling afraid as if something awful might happen: 0 = Not at all Total ANSHU-7 score (0-4 normal; 5-9 mild; 10-14 moderate; 15-21 severe): 0 Source: Developed by Drs. John Hathaway, Sugey Lockwood, Shyam Dee and colleagues, with an educational kylah from [employer]. ANSHU-7 Assessment Billing ANSHU-7 Assessment Tool: ANSHU-7 Assessment 15749 Review of Systems Const All systems reviewed & are unremarkable except as noted in HPI and below Card Denies chest pain at rest, Denies chest pain with activity, Denies edema, Denies irregular heart rhythm, Denies claudication, Denies orthopnea, Denies paroxysmal nocturnal dyspnea and Denies slow heart rate Skin/Breast Denies bleeding lesions, Denies changing lesions and Denies rash Neuro Denies behavioral changes and Denies lack of coordination Psych Denies behavioral changes Physical exam (Primary Care) Vital Signs: Last Vital Signs BP 130/82 02/26/24 17:22 BMI result Body Mass Index 40.4 BMI Assessment/Plan discussion: High BMI High, discussed plan: lifestyle, weight reduction, dietary and physical activity Tobacco/Smoking Status: Tobacco use Status Tobacco use date assessed 08/05/23 02/26/24 17:20 Patient Tobacco Use Status Former Tobacco user 02/26/24 17:20 Tobacco use type Cigarette 02/26/24 17:20 e-Cigarette/Vaping Use Never Used 02/26/24 17:20 PHQ-9: PHQ-9 Score PHQ-9: Total score 0 02/26/24 17:33 Depression Screening Interpretation: Negative Thrive Assessment: Date of Thrive Assessment Date Thrive assessed 02/26/24 02/26/24 17:20 Currently or been in a relationship where the following occur: I choose not to answer HENAR Head: Yes normal to inspection, Yes normocephalic and Yes atraumatic Ears: external ears normal Eyes General: appearance normal, both eyes and all related structures Eyelids: Yes eyelids normal Conjunctivae: conjunctivae normal Neck Neck: Yes lymphadenopathy (left nontender lymphadenopathy in lower neck la terally) Resp Effort & Inspection: normal respiratory effort Auscultation: clear to auscultation bilaterally Cardio Jugular venous distension: no JVD Rate: regular rate Rhythm: regular rhythm Heart sounds: S1 normal heart sound present and S2 normal heart sound present GI Inspection: Yes normal to inspection Palpation (GI): Soft to palpation and nontender Auscultation: normal bowel sounds Skin General skin exam: no rashes or lesions noted Neuro General: no focal motor deficits Extrem General: Yes full ROM Psych Appearance: grossly normal Assessment and Plan Assessment & Plan (1) Physical exam: Code(s): Z00.00 - Encounter for general adult medical examination without abnormal findings Plan: Repeat in a year. (2) Morbid obesity: Code(s): E66.01 - Morbid (severe) obesity due to excess calories Plan: Start diet and exercise. BMI goal is less than 30. (3) Lymphadenopathy of head and neck: Code(s): R59.1 - Generalized enlarged lymph nodes Plan: Ultrasound ordered. Orders: Orders US soft tiss head and/or neck Today R59.1 - Generalized enlarged lymph nodes Coding Level of Care Code Est Pt Level 3 (16547) Est Pt Prev Care 40-64y(01673) Diagnoses Physical exam Z00.00 Morbid obesity E66.01 Lymphadenopathy of head and neck R59.1 Additional Codes ANSHU-7 Assessment Billing - ANSHU-7 Assessment Tool: ANSHU-7 Assessment 17952 ([id number]) Time Spent (min) 33
[2024-02-26 17:22] VITALS: BP 130/82; BMI 40.4
== END 2024-02-26 17:42 | disposition home or self-care (01) ==
PROVIDERS: PCP Internal Medicine; Visit Provider Internal Medicine
DX: Z00.00 Encounter for general adult medical examination without abnormal findings (principal); E66.01 Morbid (severe) obesity due to excess calories; Z68.41 Body mass index [BMI] 40.0-44.9, adult; Z90.710 Acquired absence of both cervix and uterus; R59.1 Generalized enlarged lymph nodes
CPT/HCPCS: 99396

== ENCOUNTER 2024-03-26 15:34 | Outpatient (REF) | payer BC, SELFPAY ==
--- NOTE | ~2024-03-26 | US_ITS ---
EXAMINATION: US THYROID CLINICAL INFORMATION: Generalized enlarged lymph nodes, lymphadenopathy in left lower neck COMPARISON: Right neck ultrasound 03/05/2022 TECHNIQUE: Real-time linear transducer grayscale and color Doppler exam of the palpable area of concern over the left lower neck. FINDINGS/ US/US soft tiss head and/or neck IMPRESSION: There is a mildly enlarged though morphologically normal-appearing lymph node in segment 5 PE measuring 1.2 x 0.6 x 0.9 cm. There is an additional normal appearing this region measuring 0.6 x 0.3 x 0.4 center measures. The visualized cutaneous, subcutaneous, muscular and fascial planes are normal. Electronically signed by: Ellyn Godwin DO 03/27/2024 01:39 PM EDT
== END 2024-03-26 15:35 | disposition home or self-care (01) ==
LOC: HO.HMGCX 15:34
PROVIDERS: PCP Internal Medicine; Visit Provider Internal Medicine
DX: R59.1 Generalized enlarged lymph nodes (principal)
CPT/HCPCS: 76536

== ENCOUNTER 2025-03-23 17:12 | Outpatient (AMB) | payer BC, SELFPAY ==
--- OUTSIDE RECORDS SUMMARY | 2024-04-06 12:00 | XMS_ITS ---
Author Organization [facility] Address [address] [place] [address] Care Team Providers Care Direct Customer Service Representative Name Role Phone Emma CHUNG, Colleen Primary Care Provider Unavail able Black, Maryam Unavailable [phone] Encounters Encounter Location Date Provider Diagnosis [facility] [address] [place] [address] 04/06/2024 Maryam Ramírez Plan Of Treatment No Information Progress Notes * Alisa HERNANDEZ ADOB:[birth year] (54 yo F)Acc No.[id number]:04/06/2024 Progress Note Patient: Alisa FERNANDES Provider: Krystina Elmore DPM :1970 A ge:53 Y S ex:Female Date:04/06/2024 Address:[address] [place], [place] [id number] Pcp:Colleen Carter MD Subjective: * Chief Complaints: * * Medical History: C hronic cough, Dysphagia, Reflux ( GERD), Hiatal hernia, Sciatica, Hypothyroidism, Asthma, Reactive airway disease, Diverticulosis, Chicken pox. Objective: * Vitals: Assessment: Plan: * Treatment: * Images: * The named appointment provid er may or may not be the originator of this progress note, and it is not deemed complete until electronically signed by the appointment provider. Sign off status: Pending * Provider: Krystina Elmore DPM Date: Generated for Printi ng/Alli/Juancarlos on: 1 06:59 PM EDT
--- OUTSIDE RECORDS SUMMARY | 2024-10-09 11:00 | XMS_ITS ---
Author Organization [facility] Address [address] [facility] [address] [place] [address] Care Team Providers Care Heavy Truck Driver Name Role Phone KUNAL CHRISTIANSON Primary Care Provider Unavailab Mamta aShu Unavailable [phone] REASON FOR VISIT MED CHECK (ORANGE FORM DONE) Encounters Encounter Location Date Provider Diagnosis [facility] [address] [address] 10/09/2024 Matma Junior Plan Of Treatment Next Appt Details Provider Name:Mamta quach, 09/03/2025 02:00:00 PM, [address] [facility], [facility] [address], [place], [address], Progress Notes * JOVON HERNANDEZDOB: [birth year] (54 yo F)Acc No.[id number]:10/09/2024 Patient: Carla YORKJOVON OCONNOR Appointment Provider: Jumana Junior M.D. :1970 A ge:54 Y S ex:Female Date:10/09/2024 Address:[address] [place] [address] Pcp:KUNAL BURNETT Subjective: * Chief Complaints: * 1 . MED CHECK (ORANGE FORM DONE). * Medical History: H ypothyroidism, unspecified, Other obesity, Lichen sclerosus et atrophicus, Personal history of malignant neoplasm of cervix uteri, Carcinoma in situ of cervix, unspecified, Personal history of in-situ neoplasm of cervix uteri. 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 S exual activity c urrently sexually active. L ast Pap Smear: NIL, NEG HPV, 07/24/21 NIL, NEG HPV, 05/04/19 NIL, NEG HPV, 04/16/2016, neg, NEG HRHPV. M ammogram: < 50% density, 03/30/22 < 50% density, 07/13/19 Breast Ultrasound Left Breast, 07/02/19 Breast Ultrasound/Mammo, 06/29/19 < 50% density, 06/19/12, < 50% density. L MP and menses H yst. H ysterectomy: Y es, [facility]. C olonoscopy . B one Density: Normal. * OB History: T otal pregnancies 2 . T otal living children 2 . N VD 2 . Objective: * Vitals: Assessment: Plan: * Treatment: * Images: Billing Information: * Visit Code: * Procedure Codes: * Electronic signature of Ana Junior MD on 03/23/2025 at 06:59 PM EDT Sign off status: Pending * Appointment Provider: Jumana Junior M.D. Date: 0 10/09/2024 Generated for Ivis dill/Alli/Juancarlos on: 1 06:59 PM EDT
--- NOTE | 2025-03-23 17:17 | MHC.PC.OV ---
Vital Signs 03/23/25 17:18 Height 5 ft 7 in Weight 289 lb 8 oz BMI 45.3 BP 130/84 Blood Pressure Location Lt brachial Position Sitting Respiration 18 Pulse 76 Pulse Source Pulse Oximeter Temp 97.1 F Temp Source Temporal Artery Scan Pulse Oximetry (%) 95 Oxygen Delivery Method Room Air Intake Visit Reasons: physical Soil Specialist Required: No Accompanied by: Self / Same As Patient Allergies No Known Allergies Allergy (Verified 03/23/25 17:32) Medication List - Last Reconciled 03/23/25 by Colleen Han MD clobetasol 0.05% topical BEDTIME levothyroxine 50 mcg PO DAILY 90 days losartan 25 mg PO DAILY 90 days omeprazole 20 mg PO BID 90 days Tobacco use date assessed: 03/23/25 Dental Screening Dental Screen Date: 03/23/25 Did you have a dental visit in the last 12 months?: Yes Did you have a dental problem in the last 6 months where you did not have access to dental care?: No Was dental information given to patient?: Patient has dentist HPI HPI Comments History of Present Illness Details The patient is a 54-year-old female presenting with a physical exam. She complains of chest pain that can happen with minimal exertion and started few months ago. I will order EKG, stress test and cardiology referral. She also complains of recurrent otitis media in the right ear and some right ear discomfort and would like to see an ENT. No need for Pap smears due to hysterectomy. She is morbidly obese with a BMI of 45.3 and was advised to do diet and exercise to reach BMI goal less than 30. Will have Tdap vaccine today. She had a breast biopsy last year which showed fibroadenoma. She underwent a colonoscopy in 2020 that revealed diverticulosis and hemorrhoids. Last mammogram was July of this year. The patient is morbidly obese and has been advised to engage in diet and exercise. She reports experiencing chest pain on minimal exertion, which has been occurring frequently. She also requests a referral to an ENT specialist for right ear discomfort. [facility] Medical History Recurrent otitis media Hx of sciatica Morbid obesity Dysphagia Chronic cough Reactive airway disease Hiatal hernia Mild asthma Hypothyroidism GERD (gastroesophageal reflux disease) Surgical History History of esophagogastroduodenoscopy (EGD) Hx of colonoscopy History of total abdominal hysterectomy Family History (Updated 03/23/25 @ 17:36 by Colleen Han MD) Father Coronary artery disease Mother Breast cancer Cancer of kidney Lung cancer Son Thyroid cancer Brother No problems noted. Sister No problems noted. Son No problems noted. 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 Current occupational exposures/hazards: No Cognitive needs: No Hearing needs: No Vision needs: Yes Questionnaire Thrive Questionnaire Date Thrive assessed: 03/22/25 I am a: Patient What is your living situation today?: I have a steady place to live Within the past 12 months, did the food you bought not last and you didn't have the money to get more?: I choose not to answer this question Within the past 12 months, did you worry whether your food would run out before you got money to buy more?: I choose not to answer this question Do you have trouble paying for medicines?: I choose not to answer this question Do you have trouble getting transportation to medical appointments?: I choose not to answer this question Do you have trouble paying your heating and electricity bill?: I choose not to answer this question Do you have trouble taking care of your child, family member or friend?: I choose not to answer this question Do you have trouble with day-to-day activities such as bathing, preparing meals, shopping, managing finances, etc.?: I choose not to answer this question Are you currently unemployed and looking for a job?: I choose not to answer this question Are you interested in more education?: I choose not to answer this question Please select the resources that you would like help with: None Currently or been in a relationship where the following occur: I choose not to answer THRIVE Score: 0 ANSHU-7 AMB Questionnaire ANSHU-7 Date ANSHU - 7 assessed: 02/26/24 Source: Developed by Drs. John Hathaway, Sugey Lockwood, Shyam Dee and colleagues, with an educational kylah from [employer]. Review of Systems Const All systems reviewed & are unremarkable except as noted in HPI and below Card Denies chest pain at rest, Reports chest pain with activity, Denies edema, Denies irregular heart rhythm, Denies claudication, Denies dyspnea, Denies dyspnea on exertion, Denies orthopnea, Denies paroxysmal nocturnal dyspnea and Denies slow heart rate Resp Denies cough, Denies dyspnea and Denies dyspnea on exertion Physical exam (Primary Care) Vital Signs: Last Vital Signs Temp 97.1 F 03/23/25 17:18 Pulse 76 03/23/25 17:18 Resp 18 03/23/25 17:18 BP 130/84 03/23/25 17:18 Pulse Ox 95 03/23/25 17:18 Oxygen Delivery Method Room Air 03/23/25 17:18 BMI result Body Mass Index 45.3 Tobacco/Smoking Status: Tobacco use Status Tobacco use date assessed 03/23/25 03/23/25 17:31 Patient Tobacco Use Status Former Tobacco user 03/23/25 17:31 Tobacco use type Cigarette 03/23/25 17:31 e-Cigarette/Vaping Use Never Used 03/23/25 17:31 Thrive Assessment: Date of Thrive Assessment Date Thrive assessed 03/22/25 03/23/25 17:31 Currently or been in a relationship where the following occur: I choose not to answer Const Orientation/consciousness: patient oriented x3 HENMT Head: Yes normal to inspection, Yes normocephalic and Yes atraumatic Ears: external ears normal Eyes General: appearance normal, both eyes and all related structures Eyelids: Yes eyelids normal Conjunctivae: conjunctivae normal Neck Neck: Yes normal visual inspection and Yes supple Resp Effort & Inspection: normal respiratory effort Auscultation: clear to auscultation bilaterally Cardio Jugular venous distension: no JVD Rate: regular rate Rhythm: regular rhythm Heart sounds: S1 normal heart sound present and S2 normal heart sound present GI Inspection: Yes normal to inspection Palpation (GI): Soft to palpation and nontender Auscultation: normal bowel sounds Skin General skin exam: no rashes or lesions noted Neuro General: patient oriented x3 and no focal motor deficits Extrem General: Yes full ROM Psych Appearance: grossly normal Immunizations Boostrix Tdap 2.5 Lf unit-8 mcg-5 Lf/0.5 mL intramuscular syringe Performing Provider: Colleen Han MD Performing Location: [facility] Administered by: RUDDY Karimi on 03/23/25 17:54 Dose Route Admin Location Dispensed Lot Number Expiration Date NDC Cargo Service Supervisor 0.5 mL IM Left Deltoid 0.5 mL [id number] 04/15/27 [id number] Better Walk Total Dispensed Waste 0.5 mL 0 % VIS Given Date VIS Provided VIS Publication Date 03/23/25 Single Vaccine 21 Eligibility Eligibility Date Funding Source Not [facility] Eligible 03/23/25 Private Coding Level of Care Code Est Pt Level 3 (29946) Est Pt Prev Care 40-64y(90706) Diagnoses Physical exam Z00.00 Morbid obesity E66.01 Chest pain R07.9 Discomfort of right ear H92.01 Time Spent (min) 33 Assessment & Plan Assessment & Plan (1) Physical exam: Code(s): Z00.00 - Encounter for general adult medical examination without abnormal findings Category: Medical (2) Morbid obesity: Code(s): E66.01 - Morbid (severe) obesity due to excess calories Category: Medical (3) Chest pain: Code(s): R07.9 - Chest pain, unspecified Category: Medical (4) Discomfort of right ear: Code(s): H92.01 - Otalgia, right ear Category: Medical Plan Plan 1. Encounter for general adult medical examination without abnormal findings Z00.00 Tdap vaccine done. Colonoscopy for 2030. Mammogram for Jul 2025. 2. Morbid (severe) obesity due to excess calories E66.01 HCC 22 The patient has been advised to engage in diet and exercise to manage her morbid obesity. 3. Chest pain, unspecified R07.9 The patient reports chest pain on minimal exertion, and an EKG and stress test have been ordered. A referral to cardiology has also been made for further evaluation. 4. Otalgia, right ear H92.01 The patient requests a referral to an ENT specialist for evaluation of right ear discomfort. Orders: Orders CA stress test 03/23/25 Z00.00 - Encounter for general adult medical examination without abnormal findings NM cardiolite stress test 03/23/25 R07.9 - Chest pain, unspecified TDaP Immunization 03/23/25 Z23 - Encounter for immunization ECG 12 lead EKG 03/23/25 R07.9 - Chest pain, unspecified Referrals Ear/Nose/Throat Referral H92.01 - Otalgia, right ear Cardiology Referral R07.9 - Chest pain, unspecified
[2025-03-23 17:18] VITALS: BP 130/84; PULSE 76; RESP 18; TEMP 36.2; O2SAT 95; BMI 45.3
--- OUTSIDE RECORDS SUMMARY | 2025-03-23 18:59 | XMS_ITS | Patient Health Record ---
[facility] Organization [facility] anjelica Elkins Address [address] [place] [address] Care Team Providers Care Speeder Tender Name Role Phone Colleen Carter MD Primary Care Provider Unavail able Black, Maryam Unavailable [phone] Allergies No Known Allergies Reason For Referral No Information Medications Medication SIG (Take, Route, Frequency, Duration) Notes Start Date End Date Status Levothyroxine Sodium 25 MCG 1 tablet in the morning on an empty stomach Orally Once a day; Duration: 30 day(s) Active Omeprazole 20 MG 1 capsule 30 minutes before morning meal Orally Once a day; Duration: 30 day(s) Active Terbinafine HCl 250 MG 1 tablet Orally O nce a day for 7 days days then stop for 3 weeks repeat cycle; Duration: 90 days 12/13/2022 Not-Taking Terbinafine HCl 250 MG 1 tablet Orally O nce a day; Duration: 30 days 07/10/2023 Active Vitamin C Active Magnesium Active Social History Tobacco Use: Social History Observation Description Date Details (start date - stop date) Former Smoker NA - NA Tobacco Use/Smoking Question Answer Notes Are you a: former smoker Additional Findings: Tobacco Non-User Ex-cigaret te smoker Alcohol Screen Question Answer Notes Did you have a drink contain ing alcohol in the past year? Yes How often did you have a dri nk containing alcohol in the past year? Monthly or less (1 point) Points 1 Interpretation Negative Tobacco use other than smoking: Question Answer Notes Are you an other tobacco user? No Problems Problem Type SNOMED Code ICD Code Onset Dates Problem Status W/U Status Risk Notes Problem Acquired hammer toe of right foot (4884638428118 105) Hammer toe of right foot (M20.41) Active confirmed Problem Acquired hammer toe of left foot (1136961714378 103) Hammer toe of left foot (M20.42) Active confirmed Encounters Encounter Location Date Provider Diagnosis [facility] [address] [place] [address] 04/06/2024 Maryammisha Elmore Plan Of Treatment Pending Test Test Name Order Date *Liver Function Test (LFT) 11/05/2022 *Liver Function Test (LFT) 07/08/2023 *Liver Function Test (LFT) 10/07/2023 *Liver Function Test (LFT) 07/10/2023 [id number] NAIL, 6 OR MORE 11/05/2022 Nail Panel 11/05/2022 Insurance Providers Payer Name Payer Address Payer Phone Subscriber Number Group Number Insured Name Patient Relationship to Insured Coverage Start Date Coverage End Date [facility] [address] [place] [address] [id number] Phan Lan Spouse - patient is the spouse of the insured Medical (General) History Medical History History ICD Code chronic cough Dysphagia Reflux ( GERD) Hiatal hernia Sciatica Hypothyroidism asthma reactive airway disease Diverticulosis Chicken pox Surgical History Surgery Date(Month/Year) hysterectomy, abdominal colonoscopy EGD partial hysterectomy 2009
--- OUTSIDE RECORDS SUMMARY | 2025-03-23 19:00 | XMS_ITS | Patient Health Record ---
Author Organization [facility] Address [address] [place] [address] Care Team Providers Care Mold Operator Name Role Phone KUNAL CHRISTIANSON Primary Care Provider Unavailab Mamta Sahu Unavailable [phone] Allergies No Known Allergies Results Component Value Reference Range Notes PDF Report Reviewed date:08/31/2024 05:09:15 PM Interpretation: Performing Lab:[facility], [address], [address], [employer], Phone - [phone], Director - [facility] Notes/Report: Clinical Information:Vaginal, LMP: Hyst 2007 [id number] LMP / Prev Treat...Hyst Dates / Results....07/24/21 NIL, Neg HPV Other..............Post Menopausal No. of containers..01 ThinPrep Vial [id number] No Culture 30 Plus Reviewed date:08/31/2024 05:09:52 PM Interpretation: Performing Lab:[facility], [address], [address], [employer], Phone - [phone], Director - [facility] Notes/Report: Clinical Information:Vaginal, LMP: Hyst 2007 [id number] LMP / Prev Treat...Hyst Dates / Results....07/24/21 NIL, Neg HPV Other..............Post Menopausal No. of containers..01 ThinPrep Vial DIAGNOSIS: NEGATIVE FOR IN TRAEPITHELIAL LESION OR MALIGNANCY. Specimen adequacy: Satisfact ory for evaluation. Clinician provided ICD10: Z0 1.419 Performed by: Raoul Rodriguez , Bobbin Winder Tender (ASCP) . . Note: The Pap smear is a screening test designed to aid in the detection of premalignant and malignant conditions of the uterine cervix. It is not a diagnostic procedure and should not be used as the sole means of detecting cervical cancer. Both false-positive and false-negative reports do occur. . Test Methodology: This liquid based ThinPrep(R) pap test was screened with the use of an image guided system. HPV Aptima Negative Negative This nucleic acid amplification test detects fourteen high-risk HPV types (16,18,31,33,35,39,45,51,52,56,58 ,59,66,68) without differentiation. HPV Genotype Reflex Criteria not met, HPV Genotype not performed. Urinalysis Reviewed date:08/27/2024 03:41:14 PM Interpretation: Performing Lab: Notes/Report: PH 6.0 PROTEIN Neg GLUCOSE Neg BLOOD Neg Reason For Referral No Information Medications Medication SIG (Take, Route, Frequency, Duration) Notes Start Date End Date Status Omeprazole 10 MG TAKE 1 CAPSULE BY MO UTH DAILY Oral; Duration: 90 Active Levothyroxine Sodium 25 MCG TAKE 1 TABLE T BY MOUTH EVERY DAY IN THE MORNING ON AN EMPTY STOMACH Oral; Duration: 90 Active Clobetasol Propionate 0.05 % 1 application to affected area Externally once a night x 1 month then q other nignt; Duration: 60 days 08/22/2023 Active Social History Tobacco Use: Social History Observation Description Date Details (start date - stop date) Former Smoker NA - NA Sexual History Question Answer Notes Had sex in the past 12 months (vaginal, oral, or anal)? Yes with Men only Prevention strategies discussed: Other AUDIT-C (Standard) Question Answer Notes Did you have a drink contain ing alcohol in the past year? Yes How often did you have a dri nk containing alcohol in the past year? 2 to 3 times a week (3 points) How many drinks did you have on a typical day when you were drinking in the past year? 1 or 2 drinks (0 point) How often did you have six o r more drinks on one occasion in the past year? Never (0 point) Points 3 Interpretation Positive Tobacco Control (Standard) Question Answer Notes Tobacco use: Former smoker How long has it been since you last smoked? 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 Has been an ongoing issue for her. Blood pressure diastolic 100 mm Hg 08/27/2024 Rep eat BP: 140/100 Will Check at home and track and contact PCP. Has been an ongoing issue for her. Height 66.5 in 08/27/2024 Repeat BP: 140/ 100 Will Check at home and track and contact PCP. Has been an ongoing issue for her. Blood pressure systolic 136 mm Hg 08/27/2024 Repe at BP: 140/100 Will Check at home and track and contact PCP. Has been an ongoing issue for her. Weight 281 lbs 08/27/2024 Repeat BP: 140/ 100 Will Check at home and track and contact PCP. Has been an ongoing issue for her. BMI 44.67 kg/m2 08/27/2024 Repeat BP: 140/ 100 Will Check at home and track and contact PCP. Has been an ongoing issue for her. Encounters Encounter Location Date Provider Diagnosis [address] [place] [address] 08/27/2024 Mamta Junior Encounter for gynecological examination (general) (routine) without abnormal findings Z01.419 ; Encounter for screening mammogram for malignant neoplasm of breast Z12.31 ; Personal history of malignant neoplasm of cervix uteri Z85.41 and Lichen sclerosus et atrophicus L90.0 Assessments Encounter Date Diagnosis (ICD Code) Assessment Notes Treatment Notes Treatment Clinical Notes Section Notes 08/27/2024 Encounter for gynecological examination (general) (routine) without abnormal findings (ICD-10 - Z01.419) PAP TEST WITH HPV TYPING WAS OBTAINED. 08/27/2024 Encounter for screening mammogram for malignant neoplasm of breast (ICD-10 - Z12.31) REGULAR MAMMOGRAMS AND SBE'S WERE RECOMMENDED. 08/27/2024 Personal history of malignant neoplasm of cervix uteri (ICD-10 - Z85.41) DISCUSSED PREVIOUS HX OF CA IN SITU CERVIX. WILL NEED PAP TESTS UNTIL 25 YEARS AFTER TX SO UNTIL 2032. 08/27/2024 Lichen sclerosus et atrophicus (ICD-10 - L90.0) SHOWED PAT RECURRENCE OF LESIONS. DISCUSSED TX OPTIONS AND DETAILED INSTRUCTIONS WERE GIVEN. APPLY OINTMENT TWICE DAILY FOR 6 WEEKS. RTO IN 6 WEEKS. Plan Of Treatment Pending Test Test Name Order Date Urinalysis 07/24/2021 Urinalysis 08/22/2023 MM Digital Mammo Screening 08/27/2024 MM Digital Mammo Screening 07/24/2021 MM Digital Mammo Screening 08/15/2022 MM Digital Mammo Screening 08/22/2023 MM Digital Mammo Screening 04/16/2016 MM Digital Mammo Screening 04/25/2017 MM Digital Mammo Screening 04/29/2018 MM Digital Mammo Screening 07/20/2020 Next Appt Details Provider Name:Mamta Guillen philomena, 09/03/2025 02:00:00 PM, [address], [address], [place], [address], Insurance Providers Payer Name Payer Address Payer Phone Subscriber Number Group Number Insured Name Patient Relationship to Insured Coverage Start Date Coverage End Date [employer] [address] [place] [address] [phone] [id number] DAVID WILLIS Spouse - patient is the spouse of the insured Medical (General) History Medical History History ICD Code Hypothyroidism, unspecified E03.9 Other obesity E66.8 Lichen sclerosus et atrophicus L90.0 Personal history of malignant neoplasm o f cervix uteri Z85.41 Carcinoma in situ of cervix, 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
== END 2025-03-23 18:11 | disposition home or self-care (01) ==
LOC: HO.HMCH 17:13
PROVIDERS: PCP Internal Medicine; Visit Provider Internal Medicine
DX: Z23 Encounter for immunization (principal)

== ENCOUNTER → 2025-03-23 17:12 | Outpatient (BNVA) | payer BC, SELFPAY | PROVIDERS: PCP Internal Medicine; Visit Provider Internal Medicine | DX: Z00.00 Encounter for general adult medical examination without abnormal findings (principal); R07.9 Chest pain, unspecified; H66.91 Otitis media, unspecified, right ear; E66.01 Morbid (severe) obesity due to excess calories; Z68.45 Body mass index [BMI] 70 or greater, adult; Z23 Encounter for immunization | CPT/HCPCS: 90471; 90715 ==